=== PATIENT | male | born 1950 | race Caucasian/White ===

== ENCOUNTER 2022-08-07 09:19 | Outpatient (CLI) | payer OTHER ==
[~2022-08-07 09:19] MED LIST: NIFE60TA3 PO; PROCARDIA90 MG/BLIS PO; TOPROL XL100 M1 PO; TOPROL XL100 MG PO
== END 2022-08-07 09:56 | disposition home or self-care (01) ==
LOC: LAB 09:19
DX: M06.09 Rheumatoid arthritis without rheumatoid factor, multiple sites (principal); E79.0 Hyperuricemia without signs of inflammatory arthritis and tophaceous disease; R74.8 Abnormal levels of other serum enzymes; R76.0 Raised antibody titer; M05.79 Rheumatoid arthritis with rheumatoid factor of multiple sites without organ or systems involvement; E11.9 Type 2 diabetes mellitus without complications; E78.01 Familial hypercholesterolemia; E03.8 Other specified hypothyroidism

== ENCOUNTER 2022-11-29 10:10 | Outpatient (CLI) | payer OTHER | END 2022-11-29 10:20 | disposition home or self-care (01) | LOC: LAB 10:10 | PROVIDERS: ATTEND Internal Medicine Endocrinology, Diabetes & Metabolism | DX: M15.8 Other polyosteoarthritis (principal); E79.0 Hyperuricemia without signs of inflammatory arthritis and tophaceous disease; E11.9 Type 2 diabetes mellitus without complications; M79.7 Fibromyalgia; N40.0 Benign prostatic hyperplasia without lower urinary tract symptoms; D64.9 Anemia, unspecified ==

== ENCOUNTER 2022-12-14 09:06 | Outpatient (CLI) | payer OTHER | END 2022-12-14 09:11 | disposition home or self-care (01) | LOC: LAB 09:06 | PROVIDERS: ATTEND Internal Medicine Cardiovascular Disease | DX: K92.0 Hematemesis (principal); Z12.11 Encounter for screening for malignant neoplasm of colon ==

== ENCOUNTER → 2023-04-16 07:21 | Outpatient (CLI) | payer OTHER ==
[2023-04-16 08:21] LABS: HEMATOCRIT 40.6 % (39.0-48.0); MEAN CELL VOLUME 91.5 fL (80.0-100.00); MEAN CORPUSCULAR HEMOGLOBIN 31.6 pg (27.00-32.0); MEAN CORPUSCULAR HGB CONC 34.5 g/dl (32.0-36.0); PLATELET COUNT 198 K/uL (150-450); RED BLOOD COUNT 4.44 M/uL (4.00-6.00); RED CELL DISTRIBUTION WIDTH 13.6 % (11.5-14.5)
[2023-04-16 09:11] LABS: ALBUMIN 3.9 gm/dL (3.4-5.0); BILIRUBIN TOTAL 0.66 mg/dL (0.3-1.2); CALCIUM 9.8 mg/dL (8.5-10.1); CHOL HDL RATIO 3.3 (0-5.0); CREATININE SERUM 0.97 mg/dL (0.70-1.30); GFR 76.08; GLOBULINA 3.5 G/DL (2.4-3.5); POTASSIUM 3.78 mEq/L (3.5-5.1); TOTAL PROTEIN 7.4 gm/dL (6.4-8.2)
== END | disposition home or self-care (01) ==
LOC: LAB 07:21
PROVIDERS: ATTEND Internal Medicine Endocrinology, Diabetes & Metabolism
DX: E11.65 Type 2 diabetes mellitus with hyperglycemia (principal); E78.00 Pure hypercholesterolemia, unspecified

== ENCOUNTER 2023-07-26 09:23 | Outpatient (CLI) | payer OTHER | END 2023-07-26 09:29 | disposition home or self-care (01) | LOC: RAD 09:23 | DX: M25.562 Pain in left knee (principal) ==